=== PATIENT | male | born 1955 | race African-American/Black ===

== ENCOUNTER 2019-10-14 15:08 | Inpatient (IN) | payer OTHER ==
[2019-10-14] MEDS ORDERED: SODIUM CHLORIDE 1,000 ML IV STA (15:32)
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
[2019-10-14] MEDS ORDERED: dilTIAZem HCL 50 MG/10 ML - 10 ML VIAL IVPUSH ONE ×2 (16:06→16:42)
[2019-10-14] MEDS ORDERED: dilTIAZem HCL 125 MG/25 ML - 25 ML VIAL ONE ×2 (16:11→16:46)
[2019-10-14] MEDS ORDERED: dilTIAZem HCL 60 MG TABLET ONE (16:45)
[2019-10-14 16:53] LABS: BASO % 0.1 % (0-2.0); EOS % 1.4 % (0-4.5); HEMATOCRIT 32.1 % (35.4-49); LYMPH % 16.8 % (8-40); MCH 29.3 pg (25.7-33.7); MCHC 34.2 g/dl (32.0-35.9); MEAN CELL VOLUME 85.8 fl (80-96); MONO % 13.7 % (3.8-10.2); PLATELET COUNT 266 K/MM3 (134-434); RBC 3.74 M/mm3 (4.00-5.60); RDW 12.3 % (11.9-15.9)
[2019-10-14 17:26] LABS: ALBUMIN 3.2 g/dl (3.4-5.0); BILIRUBIN,TOTAL 0.9 mg/dL (0.2-1); CALCIUM 9.5 mg/dL (8.5-10.1); TOT PROT 6.7 g/dl (6.4-8.2)
[2019-10-14] MEDS ORDERED: ASPIRIN 81 MG CHEWABLE TABLETS PO ONE (17:42)
[2019-10-14] MEDS ORDERED: ASPIRIN 81 MG CHEWABLE TABLETS ONE (18:04)
[2019-10-14 18:22] LABS: INR 1.14 (0.83-1.09); PROTHROMBIN TIME (PATIENT) 13.5 SEC (9.7-13.0)
[2019-10-14 18:24] LABS: ACTIVATED PTT 35.1 SECONDS (25.2-36.5)
[2019-10-14 19:04] LABS: MAGNESIUM 1.8 mg/dL (1.8-2.4)
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
[2019-10-14] MEDS ORDERED: METOPROLOL TARTRATE 5 MG/5 ML VIAL IVPUSH PRN ×2 (21:47→22:03)
[2019-10-14] MEDS: METHIMAZOLE 10 MG TABLET (FP) PO SCH (22:38)
--- NOTE | 2019-10-14 22:59 | CONSULT ---
Consult Consult Specialty:: Endocrine Referred by:: Lanny MEDINARESIDENT Reason for Consultation:: Hyperthyroidism - History of Present Illness Chief Complaint: lightheaded and dizzy History of Present Illness: 63 Y male no significant pmh,admitted with sudden onset of dizzy feeling and weakness,has 20lb weight loss,denies heat intolerance,tremors or family history of thyroid illness,denies cough fever or chills. - Alcohol/Substance Use Hx Alcohol Use: No - Smoking History Smoking history: Current every day smoker Have you smoked in the past 12 months: Yes Aproximately how many cigarettes per day: 5 Home Medications - Allergies Allergies/Adverse Reactions: Allergies Allergy/AdvReac Type Severity Reaction Status Date / Time No Known Allergies Allergy Verified 10/14/19 15:21 - Home Medications Home Medications: Ambulatory Orders NK [No Known Home Medication] 10/14/19 Review of Systems - Review of Systems Constitutional: reports: Unintentional Wgt. Loss Eyes: reports: No Symptoms HENT: reports: No Symptoms Neck: reports: No Symptoms Cardiovascular: reports: Shortness of Breath Respiratory: reports: No Symptoms Gastrointestinal: reports: No Symptoms Genitourinary: reports: No Symptoms Musculoskeletal: reports: Muscle Cramps Integumentary: reports: No Symptoms Neurological: reports: Dizziness Endocrine: reports: Unexplained Weight Loss Physical Exam Vital Signs: Vital Signs Temperature 98.2 F 10/14/19 22:13 Pulse Rate 80 10/14/19 22:13 Respiratory Rate 18 10/14/19 22:13 Blood Pressure 130/70 10/14/19 22:13 O2 Sat by Pulse Oximetry (%) 95 10/14/19 22:13 Constitutional: Yes: Anxious Eyes: Yes: EOM Intact HENT: Yes: Normocephalic Cardiovascular: Yes: Tachycardia, Pulse Irregular Labs: CBC, BMP 10/14/19 14:06 10/14/19 14:06 Problem List - Problems (1) Atrial flutter with rapid ventricular response Problems reviewed: Yes Code(s): I48.92 - UNSPECIFIED ATRIAL FLUTTER (2) Hyperthyroidism Code(s): E05.90 - THYROTOXICOSIS, UNSP WITHOUT THYROTOXIC CRISIS OR STORM (3) NSTEMI (non-ST elevated myocardial infarction) Code(s): I21.4 - NON-ST ELEVATION (NSTEMI) MYOCARDIAL INFARCTION (4) Elevated blood pressure reading in office without diagnosis of hypertension Code(s): R03.0 - ELEVATED BLOOD-PRESSURE READING, W/O DIAGNOSIS OF HTN (5) Pain, dental Code(s): K08.89 - OTHER SPECIFIED DISORDERS OF TEETH AND SUPPORTING STRUCTURES (6) Wrist pain, left Code(s): M25.532 - PAIN IN LEFT WRIST Assessment/Plan Current Active Problems Atrial flutter with rapid ventricular response (Acute) Hyperthyroidism (Acute) NSTEMI (non-ST elevated myocardial infarction) (Acute) Abnormal Lab Results 10/14/19 10/14/19 10/14/19 14:06 14:06 17:50 RBC 3.74 L Hgb 11.0 L Hct 32.1 L Monocytes % 13.7 H PT with INR 13.50 H INR 1.14 H Alkaline Phosphatase 229 H Troponin I 0.84 H* Albumin 3.2 L TSH 0.01 L Free T4 10/14/19 10/14/19 17:50 21:45 RBC Hgb Hct Monocytes % PT with INR INR Alkaline Phosphatase Troponin I 0.86 H* Albumin TSH Free T4 3.92 H plan: HYPERTHYROIDISM Graves disease likely METHIMAZOLE 10mg tid increase to 20mg tid as tolerated beta blockers as ordered cardiac monitoring anticoagulation
[2019-10-15] MEDS: METHIMAZOLE 10 MG TABLET (FP) PO SCH ×3 (05:28→21:07)
[2019-10-15 05:36] VITALS: BMI 26.2
[2019-10-15 06:50] LABS: BASO % 0.2 % (0-2.0); EOS % 3.4 % (0-4.5); HEMATOCRIT 28.6 % (35.4-49); HEMOGLOBIN 9.7 GM/dL (11.7-16.9); LYMPH % 30.3 % (8-40); MCH 28.8 pg (25.7-33.7); MEAN CELL VOLUME 84.8 fl (80-96); MEAN PLT VOLUME 8.2 fl (7.5-11.1); NEUT % 48.1 % (42.8-82.8); PLATELET COUNT 236 K/MM3 (134-434); RBC 3.38 M/mm3 (4.00-5.60); RDW 12.5 % (11.9-15.9); WHITE BLOOD COUNT 4.3 K/mm3 (4.0-10.0)
[2019-10-15 07:16] LABS: ALBUMIN 2.9 g/dl (3.4-5.0); BILIRUBIN,TOTAL 0.8 mg/dL (0.2-1); BLOOD UREA NITROGEN 20.6 mg/dL (7-18); CREATININE 0.9 mg/dL (0.55-1.3); MAGNESIUM 1.8 mg/dL (1.8-2.4); PHOSPHOROUS 3.2 mg/dL (2.5-4.9); TOT PROT 6.1 g/dl (6.4-8.2)
[2019-10-15] MEDS: ENOXAPARIN NA (PORCINE) 40 MG/0.4 ML DISP.SYRIN SQ SCH (10:16)
[2019-10-15] MEDS: ASPIRIN COATED 81 MG TABLET.EC PO SCH (10:16)
--- NOTE | 2019-10-15 12:17 | ECHO ---
Version: 1 Name: CLAUDETTE KIM Exam: Adult Echocardiogram Study Date: 10/15/2019, 10:54 AM Age: 63 Years MMode/2D Measurements & Calculations IVSd: 1.13 cm LVIDs: 3.2 cm LVIDd: 4.9 cm LVPWd: 1.10 cm LAV (MOD-bp): 74.0 ml ACS: 1.94 cm Ao root diam: 3.0 cm LVOT diam: 1.99 cm LA dimension: 4.2 cm Doppler Measurements & Calculations MV E max jj: 97.2 cm/sec Med E/e': 19.2 MV A max jj: 80.0 cm/sec Med Peak E' Jj: 5.1 cm/sec MV E/A: 1.22 Lat E/e': 13.0 Lat Peak E' Jj: 7.5 cm/sec MR max P.8 mmHg Ao max P.7 mmHg DAWN(I,D): 2.37 cm Ao mean P.1 mmHg LV V1 mean: 69.1 cm/sec Ao V2 max: 147.7 cm/sec LV V1 mean P.30 mmHg PI end-d jj: 107.2 cm/sec TR max jj: 269.5 cm/sec TR max P.3 mmHg Left Ventricle Left ventricular systolic function is normal. Ejection Fraction = 60-65%. Right Ventricle The right ventricle is normal in size and function. Atria The left atrium is mildly dilated. Mitral Valve The mitral valve is normal in structure and function. There is no mitral valve stenosis. There is mi ld mitral regurgitation. Tricuspid Valve The tricuspid valve is normal in structure and function. There is mild tricuspid regurgitation. Righ t ventricular systolic pressure is elevated at 30-40mmHg. Aortic Valve The aortic valve opens well. No hemodynamically significant valvular aortic stenosis. No aortic regu rgitation is present. Pulmonic Valve The pulmonic valve is not well seen, but is grossly normal. There is no pulmonic valvular stenosis. Great Vessels The aortic root is normal size. Pericardium/Pleura There is no pericardial effusion. Summary Statements Left ventricular systolic function is normal. Ejection Fraction = 60-65%. The left atrium is mildly dilated. There is mild mitral regurgitation. There is mild tricuspid regurgitation. Right ventricular systolic pressure is elevated at 30-40mmHg. There is no pericardial effusion. MD Arauz *[place] 10/15/2019, 12:16 PM Ordering Physician: Trevon Jordan Referring Physician: TREVON JORDAN Performed By: Lori Delaney
--- NOTE | 2019-10-15 12:54 | EKG ---
Test Reason : Blood Pressure : / mmHG Vent. Rate : 101 BPM Atrial Rate : 071 BPM P-R Int : 154 ms QRS Dur : 082 ms QT Int : 400 ms P-R-T Axes : 036 031 074 degrees QTc Int : 518 ms SINUS RHYTHM WITH PREMATURE SUPRAVENTRICULAR COMPLEXES AND WITH OCCASIONAL PREMATURE VENTRICULAR COMPLEXES NONSPECIFIC T WAVE ABNORMALITY ABNORMAL ECG WHEN COMPARED WITH ECG OF 14-OCT-2019 15:54, SINUS RHYTHM HAS REPLACED ATRIAL FLUTTER NONSPECIFIC T WAVE ABNORMALITY, WORSE IN LATERAL LEADS Confirmed by CELIO DE LA CRUZ MD ([id number]) on 10/15/2019 12:54:24 PM Referred By: Confirmed By:CELIO DE LA CRUZ MD
--- NOTE | 2019-10-15 12:55 | EKG ---
Test Reason : Blood Pressure : / mmHG Vent. Rate : 144 BPM Atrial Rate : 288 BPM P-R Int : 000 ms QRS Dur : 074 ms QT Int : 312 ms P-R-T Axes : 000 014 068 degrees QTc Int : 483 ms POOR DATA QUALITY, INTERPRETATION MAY BE ADVERSELY AFFECTED ATRIAL FLUTTER WITH VARIABLE A-V BLOCK NONSPECIFIC ST AND T WAVE ABNORMALITY ABNORMAL ECG NO PREVIOUS ECGS AVAILABLE Confirmed by CELIO DE LA CRUZ MD ([id number]) on 10/15/2019 12:55:42 PM Referred By: Confirmed By:CELIO DE LA CRUZ MD
[2019-10-15] MEDS ORDERED: PT OWN MED DRAWER 7, Y5N ONE ×2 (13:26→20:06)
[2019-10-15 13:38] LABS: RETICULOCYTES 1.63 % (0.5-1.5)
--- NOTE | 2019-10-15 14:07 | PN ---
Teaching Attending Note Name of Resident: King De Jesus ATTENDING PHYSICIAN STATEMENT I saw and evaluated the patient. I reviewed the resident's note and discussed the case with the resident. I agree with the resident's findings and plan as documented. SUBJECTIVE: Seen and examined at bedside. Patient reports feeling much better since admission. Heart rate and blood pressure have improved. Pending results of thyroid studies. Echocardiogram unremarkable OBJECTIVE: Last Vital Signs Temp Pulse Resp BP Pulse Ox 98.1 F 90 18 156/87 96 10/15/19 09:00 10/15/19 09:00 10/15/19 09:00 10/15/19 09:00 10/15/19 09:00 PE: per resident note Labs/Imaging: reviewed ASSESSMENT AND PLAN: 63-year-old male with no past medical history presents with dizziness and tachycardia and tremors of the hands. Found to have symptomatic hyperthyroidism. #Symptomatic hypothyroidism Decreased TSH and increased T4 suggest either Graves' disease or hot nodule Follow-up thyroglobulin, thyroid-stimulating immunoglobulin Continue methimazole 10 mg 3 times daily, increase to 20 mg 3 times daily Continue propranolol #Elevated troponin: Downtrending Likely demand ischemia in setting of symptomatic hypothyroidism No need for further work-up #A flutter with rapid ventricular response: Resolved In setting of symptomatic hypothyroidism Continue telemetry Continue propranolol Lopressor IV push PRN elevated heart rate
--- NOTE | 2019-10-15 17:04 | PN ---
Progress Note, Physician Chief Complaint: feeling better than when i came in Much better" - Current Medication List Current Medications: Active Medications Aspirin (Ecotrin -) 81 mg PO DAILY [facility] Last Admin: 10/15/19 10:16 Dose: 81 mg Documented by: Enoxaparin Sodium (Lovenox -) 40 mg SQ DAILY [facility] Last Admin: 10/15/19 10:16 Dose: 40 mg Documented by: Methimazole (Tapazole -) 10 mg PO TID [facility] Last Admin: 10/15/19 13:53 Dose: 10 mg Documented by: Metoprolol Tartrate (Lopressor Injection -) 2.5 mg IVPUSH Q6H PRN PRN Reason: TACHYCARDIA (HR > 120) Propranolol HCl (Inderal -) 20 mg PO TID [facility] Last Admin: 10/15/19 13:53 Dose: 20 mg Documented by: - Objective Vital Signs: Vital Signs Temperature 98.2 F 10/15/19 14:00 Pulse Rate 94 H 10/15/19 14:00 Respiratory Rate 18 10/15/19 09:00 Blood Pressure 138/63 10/15/19 14:00 O2 Sat by Pulse Oximetry (%) 96 10/15/19 09:00 Constitutional: Yes: Calm Eyes: Yes: EOM Intact HENT: Yes: Normocephalic Neck: Yes: Trachea Midline Cardiovascular: Yes: Pulse Irregular Respiratory: Yes: CTA Bilaterally Labs: CBC, BMP 10/15/19 05:55 10/15/19 05:55 INR, PTT INR 1.14 (0.83-1.09) H 10/14/19 17:50 Problem List - Problems (1) Atrial flutter with rapid ventricular response Code(s): I48.92 - UNSPECIFIED ATRIAL FLUTTER (2) Hyperthyroidism Code(s): E05.90 - THYROTOXICOSIS, UNSP WITHOUT THYROTOXIC CRISIS OR STORM (3) NSTEMI (non-ST elevated myocardial infarction) Code(s): I21.4 - NON-ST ELEVATION (NSTEMI) MYOCARDIAL INFARCTION (4) Elevated blood pressure reading in office without diagnosis of hypertension Code(s): R03.0 - ELEVATED BLOOD-PRESSURE READING, W/O DIAGNOSIS OF HTN (5) Pain, dental Code(s): K08.89 - OTHER SPECIFIED DISORDERS OF TEETH AND SUPPORTING STRUCTURES (6) Wrist pain, left Code(s): M25.532 - PAIN IN LEFT WRIST
[2019-10-16 05:20] VITALS: PULSE 84
[2019-10-16] MEDS: METHIMAZOLE 10 MG TABLET (FP) PO SCH (05:21)
[2019-10-16 09:19] VITALS: BP 148/71; TEMP 98
[2019-10-16] MEDS: ASPIRIN COATED 81 MG TABLET.EC PO SCH (09:20)
[2019-10-16] MEDS: ENOXAPARIN NA (PORCINE) 40 MG/0.4 ML DISP.SYRIN SQ SCH (09:21)
--- NOTE | 2019-10-16 11:35 | DS ---
Physical Examination Vital Signs: Vital Signs Temperature 98.0 F 10/16/19 09:00 Pulse Rate 84 10/16/19 09:00 Respiratory Rate 18 10/16/19 09:00 Blood Pressure 148/71 10/16/19 09:00 O2 Sat by Pulse Oximetry (%) 96 10/16/19 09:00 Constitutional: Yes: Well Nourished Eyes: Yes: WNL HENT: Yes: WNL Cardiovascular: Yes: WNL, Regular Rate and Rhythm Respiratory: Yes: WNL, Regular, CTA Bilaterally Gastrointestinal: Yes: Normal Bowel Sounds, Soft Extremities: Yes: WNL Edema: No Labs: CBC, BMP 10/15/19 05:55 10/15/19 05:55 Discharge Summary Problems reviewed: Yes Reason For Visit: HYPERTHYROIDISM NON-ST ELEVATION MYOCARDIAL INFARC Current Active Problems Atrial flutter with rapid ventricular response (Acute) Hyperthyroidism (Acute) NSTEMI (non-ST elevated myocardial infarction) (Acute) Hospital Course: Patient was admitted for dizziness and tachycardia and tremors of the hands as well as a flutter with rapid ventricular response. Patient was found to have symptomatic hyperthyroidism concerning for Graves' disease. Thyroid-stimulating antibody is currently pending. Patient was started on methimazole and propra nolol with improvement in symptoms and normalization of heart rate and blood pressure. Patient is medically stable for discharge. He will follow-up with Dr. Wilson as an outpatient for further management and treatment of his suspected Graves' disease. He will be discharged on methimazole 10 mg 3 times daily, and propranolol 30 mg 3 times daily. Condition: Improved - Instructions Referrals: Jose Wilson MD [Staff Physician] - 2 Weeks (Follow-up with Dr. Wilson (endocrinology) for further evaluation and treatment of your hyperthyroidism) Disposition: HOME - Home Medications Comprehensive Discharge Medication List: Ambulatory Orders Methimazole [Tapazole -] 10 mg PO TID #90 tablet 10/16/19 propRANOLol HCL [Inderal -] 30 mg PO TID 1 Days #90 tablet 10/16/19 This patient is new to me today: No Emergency Visit: Yes ED Registration Date: 10/14/19 Care time: The patient presented to the Emergency Department on the above date and was hospitalized for further evaluation of their emergent condition. Critical Care patient: No - Discharge Referral Referred to [facility] Yes Physician Referral: Fredy Mehta MD (Int Med)
--- NOTE | 2019-10-16 12:32 | PN ---
Physical Exam: SUBJECTIVE: Patient seen and examined OBJECTIVE: Vital Signs Period Temp Pulse Resp BP Sys/Clark Pulse Ox Last 24 Hr 98.0 F-98.8 F 75-100 18-20 138-152/63-91 95-98 GENERAL: The patient is awake, alert, and fully oriented, in no acute distress. HEAD: Normal with no signs of trauma. EYES: PERRL, extraocular movements intact, sclera anicteric, conjunctiva clear. No ptosis. ENT: Ears normal, nares patent, oropharynx clear without exudates, moist mucous membranes. NECK: Trachea midline, full range of motion, supple. LUNGS: Breath sounds equal, clear to auscultation bilaterally, no wheezes, no crackles, no accessory muscle use. HEART: Regular rate and rhythm, S1, S2 without murmur, rub or gallop. ABDOMEN: Soft, nontender, nondistended, normoactive bowel sounds, no guarding, no rebound, no hepatosplenomegaly, no masses. EXTREMITIES: 2+ pulses, warm, well-perfused, no edema. NEUROLOGICAL: Cranial nerves II through XII grossly intact. Normal speech, gait not observed. PSYCH: Normal mood, normal affect. SKIN: Warm, dry, normal turgor, no rashes or lesions noted Laboratory Results - last 24 hr 10/14/19 10/15/19 10/15/19 17:45 05:55 05:55 WBC 4.3 RBC 3.38 L Hgb 9.7 L Hct 28.6 L MCV 84.8 MCH 28.8 MCHC 34.0 RDW 12.5 Plt Count 236 MPV 8.2 Absolute Neuts (auto) 2.1 Neutrophils % 48.1 D Lymphocytes % 30.3 D Monocytes % 18.0 H Eosinophils % 3.4 D Basophils % 0.2 Nucleated RBC % 0 Retic Count 1.63 H Sodium Potassium Chloride Carbon Dioxide Anion Gap BUN Creatinine Est GFR (CKD-EPI)AfAm Est GFR (CKD-EPI)NonAf Random Glucose Calcium Phosphorus Magnesium Iron TIBC Iron Saturation Unsaturated IBC Transferrin Ferritin Total Bilirubin AST ALT Alkaline Phosphatase Troponin I Total Protein Albumin Vitamin B12 Serum Folate Total T3 506.00 H Thyroglobulin (PURVI) Thyroglobulin Antibody COVID-19 (NATHALIE) Not detected 10/15/19 10/15/19 10/15/19 05:55 05:55 05:55 WBC RBC Hgb Hct MCV MCH MCHC RDW Plt Count MPV Absolute Neuts (auto) Neutrophils % Lymphocytes % Monocytes % Eosinophils % Basophils % Nucleated RBC % Retic Count Sodium 140 Potassium 4.0 Chloride 108 H Carbon Dioxide 26 Anion Gap 6 L BUN 20.6 H Creatinine 0.9 Est GFR (CKD-EPI)AfAm 104.24 Est GFR (CKD-EPI)NonAf 89.94 Random Glucose 102 Calcium 9.0 Phosphorus 3.2 Magnesium 1.8 Iron 39 L TIBC 132 L Iron Saturation 29 Unsaturated IBC 93 L Transferrin 123 L Ferritin 684.4 H Total Bilirubin 0.8 AST 21 ALT 45 Alkaline Phosphatase 202 H Troponin I 0.69 H* Total Protein 6.1 L Albumin 2.9 L Vitamin B12 360 Serum Folate 13 Total T3 Thyroglobulin (PURVI) 333.9 H Thyroglobulin Antibody <1.0 COVID-19 (NATHALIE) 10/15/19 12:25 WBC RBC Hgb Hct MCV MCH MCHC RDW Plt Count MPV Absolute Neuts (auto) Neutrophils % Lymphocytes % Monocytes % Eosinophils % Basophils % Nucleated RBC % Retic Count Sodium Potassium Chloride Carbon Dioxide Anion Gap BUN Creatinine Est GFR (CKD-EPI)AfAm Est GFR (CKD-EPI)NonAf Random Glucose Calcium Phosphorus Magnesium Iron TIBC Iron Saturation Unsaturated IBC Transferrin Ferritin Total Bilirubin AST ALT Alkaline Phosphatase Troponin I 0.58 H Total Protein Albumin Vitamin B12 Serum Folate Total T3 Thyroglobulin (PURVI) Thyroglobulin Antibody COVID-19 (NATHALIE) Active Medications Generic Name Dose Route Start Last Admin Trade Name Freq PRN Reason Stop Dose Admin Aspirin 81 mg 10/15/19 10:00 10/16/19 09:20 Ecotrin - PO 81 mg DAILY [facility] Administration Enoxaparin Sodium 40 mg 10/15/19 10:00 10/16/19 09:21 Lovenox - SQ 40 mg DAILY [facility] Administration Methimazole 10 mg 10/14/19 22:00 10/16/19 05:21 Tapazole - PO 10 mg TID [facility] Administration Metoprolol Tartrate 2.5 mg 10/14/19 22:03 Lopressor Injection - IVPUSH Q6H PRN TACHYCARDIA (HR > 120) Propranolol HCl 30 mg 10/16/19 08:04 Inderal - PO TID [facility] ASSESSMENT/PLAN: ATTENDING PHYSICIAN STATEMENT I saw and evaluated the patient. I reviewed the resident's note and discussed the case with the resident. I agree with the resident's findings and plan as documented. SUBJECTIVE: OBJECTIVE: ASSESSMENT AND PLAN:
--- NOTE | 2019-10-16 13:25 | PN ---
Physical Exam: Note for 10/15/19 SUBJECTIVE: No overnight events. Endorses feeling better. Dizziness improved. Tremors resolved. QTC 448 OBJECTIVE: Vital Signs Period Temp Pulse Resp BP Sys/Clark Pulse Ox Last 24 Hr 98.0 F-98.8 F 75-100 18- 138-152/63-91 95-98 GENERAL: AAOX3, NAD HEAD: Normal with no signs of trauma. ENT: Ears normal, nares patent, oropharynx clear without exudates, MMM NECK: No thyromegaly or thyroid nodules appreciated. Normal range of motion, supple without lymphadenopathy,or masses LUNGS: Breath sounds equal, clear to auscultation bilaterally, no wheezes, no crackles, no accessory muscle use. HEART: Regular rate and rhythm, S1, S2 without murmur, rub or gallop. ABDOMEN: Soft, nontender, nondistended, normoactive bowel sounds EXTREMITIES: 2+ pulses, warm, well-perfused, no edema. No pretibial myxedema on LE NEUROLOGICAL: Cranial nerves II through XII grossly intact. Normal speech, gait not observed. DTRs 2+ PSYCH: Normal mood, normal affect. Laboratory Results - last 24 hr 10/14/19 10/14/19 10/15/19 17:45 17:50 05:55 WBC RBC Hgb Hct MCV MCH MCHC RDW Plt Count MPV Absolute Neuts (auto) Neutrophils % Lymphocytes % Monocytes % Eosinophils % Basophils % Nucleated RBC % Retic Count Sodium Potassium Chloride Carbon Dioxide Anion Gap BUN Creatinine Est GFR (CKD-EPI)AfAm Est GFR (CKD-EPI)NonAf Random Glucose Calcium Phosphorus Magnesium Iron TIBC Iron Saturation Unsaturated IBC Transferrin Ferritin Total Bilirubin AST ALT Alkaline Phosphatase Troponin I Total Protein Albumin Vitamin B12 Serum Folate Free T3 21.4 H Total T3 506.00 H Thyroglobulin (PURVI) Thyroglobulin Antibody COVID-19 (NATHALIE) Not detected 10/15/19 10/15/19 10/15/19 05:55 05:55 05:55 WBC 4.3 RBC 3.38 L Hgb 9.7 L Hct 28.6 L MCV 84.8 MCH 28.8 MCHC 34.0 RDW 12.5 Plt Count 236 MPV 8.2 Absolute Neuts (auto) 2.1 Neutrophils % 48.1 D Lymphocytes % 30.3 D Monocytes % 18.0 H Eosinophils % 3.4 D Basophils % 0.2 Nucleated RBC % 0 Retic Count 1.63 H Sodium 140 Potassium 4.0 Chloride 108 H Carbon Dioxide 26 Anion Gap 6 L BUN 20.6 H Creatinine 0.9 Est GFR (CKD-EPI)AfAm 104.24 Est GFR (CKD-EPI)NonAf 89.94 Random Glucose 102 Calcium 9.0 Phosphorus 3.2 Magnesium 1.8 Iron 39 L TIBC 132 L Iron Saturation 29 Unsaturated IBC 93 L Transferrin Ferritin 684.4 H Total Bilirubin 0.8 AST 21 ALT 45 Alkaline Phosphatase 202 H Troponin I 0.69 H* Total Protein 6.1 L Albumin 2.9 L Vitamin B12 360 Serum Folate 13 Free T3 Total T3 Thyroglobulin (PURVI) 333.9 H Thyroglobulin Antibody <1.0 COVID-19 (NATHALIE) 10/15/19 10/15/19 05:55 12:25 WBC RBC Hgb Hct MCV MCH MCHC RDW Plt Count MPV Absolute Neuts (auto) Neutrophils % Lymphocytes % Monocytes % Eosinophils % Basophils % Nucleated RBC % Retic Count Sodium Potassium Chloride Carbon Dioxide Anion Gap BUN Creatinine Est GFR (CKD-EPI)AfAm Est GFR (CKD-EPI)NonAf Random Glucose Calcium Phosphorus Magnesium Iron TIBC Iron Saturation Unsaturated IBC Transferrin 123 L Ferritin Total Bilirubin AST ALT Alkaline Phosphatase Troponin I 0.58 H Total Protein Albumin Vitamin B12 Serum Folate Free T3 Total T3 Thyroglobulin (PURVI) Thyroglobulin Antibody COVID-19 (NATHALIE) CTH: no acute intracranial pathology. Mild degree of diffuse cerebral atrophy w/ sulcal widening & ventricular dilatation. CXR: no acute pathology ASSESSMENT/PLAN: 63 YO M no significant PMH p/w an episode of dizziness, lightheadness, and fine hand tremors that resolved after 20 minutes & a 12 lb unintentional weight loss over the last 3-4 months. #Atrial FLutter w/ RVR -EKG: aflutter w/ variable AV block, RVR at 144 bpm, nonspecific t wave abnormality -s/p diltiazem & propranolol for rate control in ED -c/w propranolol 20 mg PO TID -c/w metoprolol tartrate (lopressor) 2.5 mg IV push PRN, if HR> 120, Hold for Sys BP <90, HR<100 -c/w ASA 81 mg daily -c/w telemonitoring -echo: LV systolic function normal. EF: 60-65%. LA mildly dilated. Mild mitral/tricuspid regurg. RV systolic pressure elevated at 30-40 mmHg. No pericardial effusion #Primary hyperthyroidism -no hx or fm h/o thyroid conditions -TSH 0.01, Free T4 3.92 -Endocrine c/s appreciated. Increase methimazole to 20 mg TID. c/w propranolol 20 mg PO TID. -f/u Thyroglobulin, Thyroid stimulating immunoglobulin. Radioactive iodine uptake scan if negative for Graves disease. -thyroid ultrasound outpt #Troponinemia -Trop downtrended from 0.84>0.86> 0.69 >0.58 -2/2 demand ischemia #Normocytic anemia -H/H 11/32.1>9.7/28.6, MCV 85.8 -LOW iron (39), TIBC (132)// ELEVATED Ferritin (684.4)// -NORMAL B12 360, folate 13 -reticulocyte: 1.63 -Transferrin saturation: 29.5% -likely anemia of chronic disease #DVT ppx Lovenox 40 mg sq daily #FEN No ivf Monitor lytes Regular diet #DISPO Maintain tele Visit type - Emergency Visit Emergency Visit: Yes ED Registration Date: 10/14/19 Care time: The patient presented to the Emergency Department on the above date and was hospitalized for further evaluation of their emergent condition. - New Patient This patient is new to me today: Yes Date on this admission: 10/15/19 - Critical Care Critical Care patient: No ATTENDING PHYSICIAN STATEMENT I saw and evaluated the patient. I reviewed the resident's note and discussed the case with the resident. I agree with the resident's findings and plan as documented. SUBJECTIVE: OBJECTIVE: ASSESSMENT AND PLAN:
== END 2019-10-16 12:32 | disposition home or self-care (01) | DRG 643 ==
LOC: JER 15:08 → JERBED 18:14 → J4W 21:08
PROVIDERS: ADMIT Internal Medicine; ATTEND Internal Medicine
DX: E05.90 Thyrotoxicosis, unspecified without thyrotoxic crisis or storm (principal); I21.4 Non-ST elevation (NSTEMI) myocardial infarction; I48.92 Unspecified atrial flutter; R42 Dizziness and giddiness; R63.4 Abnormal weight loss; Z68.26 Body mass index [BMI] 26.0-26.9, adult; F17.210 Nicotine dependence, cigarettes, uncomplicated; M25.532 Pain in left wrist; K08.89 Other specified disorders of teeth and supporting structures; D64.9 Anemia, unspecified; R00.0 Tachycardia, unspecified
CPT/HCPCS: 36415; 70450-TC; 71045-TC-FY; 80053; 82550; 82607; 82728; 82746; 83540; 83550; 83735; 84100; 84439; 84443; 84445; 84466; 84480; 84481; 84484; 85025; 85045; 85379; 85610; 85730; 93005; 93010; 93306-TC; 99291; U0003

== ENCOUNTER 2024-08-18 21:01 | Inpatient (IN) | payer OTHER ==
[2024-08-18] MEDS ORDERED: ALBUTEROL SO4 2.5/IPRATROPIUM 0.5 INH SOL 3 ML VIAL.NEB. NEB ONE (21:06)
[2024-08-18] MEDS: LORazepam 2 MG/ML SDV VIAL IVPUSH ONE (21:07)
[2024-08-18] MEDS ORDERED: LORazepam 2 MG/ML SDV VIAL ONE (21:07)
[2024-08-18] MEDS ORDERED: RAPID SEQUENCE INTUBATION KIT NR ONE (21:10)
[2024-08-18] MEDS ORDERED: ROCURONIUM BROMIDE 50 MG/5 ML SYRINGE ONE (21:13)
[2024-08-18] MEDS ORDERED: MIDAZOLAM IN 0.9 % SOD.CHLORID 1 MG/1 ML PLAST..BAG ONE (21:36)
[2024-08-18] MEDS ORDERED: dilTIAZem HCL 125 MG/25 ML - 25 ML VIAL ONE ×2 (21:42→23:18)
[2024-08-18] MEDS: dilTIAZem HCL 50 MG/10 ML - 10 ML VIAL IVPUSH ONE ×2 (21:45→23:20)
[2024-08-18] MEDS: MIDAZOLAM IN 0.9 % SOD.CHLORID 100 MG/100 ML PLAST..BAG IVPB SCH (22:07)
[2024-08-18 22:12] LABS: BG HCT 43.0 % (35.4-49); VENOUS BASE EXCESS -18.9 mmol/L (-2-2); VENOUS O2 SATURATION 83.1 % (70-80); VENOUS PCO2 62.4 mmHg (38-52)
[2024-08-18 22:13] LABS: VENOUS PH 6.959 (7.310-7.410)
[2024-08-18 22:15] LABS: RDW 13.9 % (12.2-16.4)
[2024-08-18 22:16] LABS: MCHC 32.8 g/dl (32.3-36.5); MEAN CELL VOLUME 84.7 fl (79.0-92.2); MEAN PLT VOLUME 9.9 fl (9.4-12.4)
[2024-08-18 22:24] LABS: INR 1.18 (0.83-1.09); PROTHROMBIN TIME (PATIENT) 13.0 SEC (9.7-13.0)
[2024-08-18 22:27] LABS: ACTIVATED PTT 35.0 SECONDS (25.2-36.5)
[2024-08-18 22:41] LABS: N-TERMINAL BNP 3545.2 pg/ml (5-125)
[2024-08-18] MEDS ORDERED: PROPOFOL 1,000,000 MCG/100 ML VIAL ONE (22:41)
[2024-08-18 22:44] LABS: CO2 22.0 mmol/L (21-32); GLUCOSE,RANDOM 199.0 mg/dL (74-106)
[2024-08-18 22:47] LABS: CREATININE 1.3 mg/dL (0.55-1.3)
[2024-08-18 22:48] LABS: EPI CELLS >36 /uL (0-25.1); HYALINE CASTS 0 /uL (0-3.1); URINE APPEARANCE CLEAR; URINE BACTERIA 81 /uL (0-1359); URINE BILIRUBIN NEGATIVE (NEGATIVE); URINE COLOR YELLOW; URINE GLUCOSE (UA) NEGATIVE (NEGATIVE); URINE KETONE NEGATIVE (NEGATIVE); URINE LEUK ESTERASE NEGATIVE (NEGATIVE); URINE NITRITE NEGATIVE (NEGATIVE); URINE PROTEIN 3+ (NEGATIVE); URINE RBC 21 /uL (0-23.9); URINE UROBILINOGEN 1.0 mg/dL (0.2-1.0)
[2024-08-18 22:48] LABS: SGOT/AST 67.0 U/L (15-37); SGPT/ALT 64.0 U/L (13-61); TOT PROT 7.9 g/dl (6.4-8.2)
[2024-08-18 22:50] LABS: ALK PHOS 298.0 U/L (45-117)
[2024-08-18] MEDS: PROPOFOL 1,000,000 MCG/100 ML VIAL IVPB SCH (22:50)
[2024-08-18] MEDS: NITROGLYCERIN 25MG/D5W 250ML 25 MG/250 ML ML IVPB SCH (22:52)
[2024-08-18 22:54] LABS: URINE BARBITURATES NEGATIVE (NEGATIVE)
[2024-08-18 22:55] LABS: COCAINE, UR NEGATIVE (NEGATIVE); METHADONE, UR NEGATIVE (NEGATIVE); PHENCYCLIDINE,URINE NEGATIVE (NEGATIVE)
[2024-08-18 22:58] LABS: OPIATES, URI NEGATIVE (NEGATIVE); URINE AMPHETAMINES NEGATIVE (NEGATIVE); URINE BENZODIAZEPINES NEGATIVE (NEGATIVE)
[2024-08-19 00:07] LABS: URINE WBC 82.9 /uL (0-25.8)
[2024-08-19] MEDS: METHIMAZOLE 10 MG TABLET NGT SCH ×2 (00:21→09:04)
[2024-08-19] MEDS ORDERED: FUROSEMIDE 40 MG/4 ML INJECTABLE VIAL ONE (00:21)
[2024-08-19] MEDS: FUROSEMIDE 40 MG/4 ML INJECTABLE VIAL IVPUSH ONE (00:23)
[2024-08-19] MEDS: MUPIROCIN 2% TOPICAL OINTMENT FOR DECOLONIZATION NS SCH (00:24)
[2024-08-19 01:20] LABS: ARTERIAL BLD GAS O2 SATURATION 90.2 % (95-98); ARTERIAL BLOOD GAS BASE EXCESS -7.8 mmol/L (-2-2); ARTERIAL BLOOD GAS PCO2 53.30 mmHg (35-45); ARTERIAL BLOOD GAS PO2 70.2 mmHg (80-100); BG HCT 44.0 % (35.4-49); O2 CONTENT 1.87 % vol
[2024-08-19] MEDS: CEFTRIAXONE 1 GM in DEXTROSE 5%-WATER - 50 ML IVPB SCH (01:37)
[2024-08-19] MEDS: METHIMAZOLE 10 MG TABLET PO ONE (01:37)
[2024-08-19] MEDS: POTASSIUM CHLORIDE ORAL LIQUID 20 MEQ/15 ML PO ONE ×2 (01:40→01:45)
[2024-08-19] MEDS: HYDROCORTISONE SOD SUCCINATE 100 MG/2 ML VIAL IVPB ONE (02:24)
[2024-08-19] MEDS: AZITHROMYCIN IVPB 500 MG/250 ML BAG IVPB ONE (02:28)
[2024-08-19] MEDS ORDERED: NOREPINEPHRINE BITARTRATE 4 MG/4 ML ML IV ONE ×2 (03:16→10:00)
[2024-08-19 03:39] LABS: ARTERIAL BLD GAS O2 SATURATION 96.4 % (95-98); ARTERIAL BLOOD GAS BASE EXCESS -11.5 mmol/L (-2-2); ARTERIAL BLOOD GAS PCO2 54.10 mmHg (35-45); ARTERIAL BLOOD GAS PO2 110.3 mmHg (80-100); BG HCT 41.0 % (35.4-49); O2 CONTENT 1.88 % vol
[2024-08-19] MEDS: NOREPINEPHRINE BITARTRATE 4,000 MCG in DEXTROSE 5%-WATER - 496 ML IV SCH (04:00)
[2024-08-19] MEDS: FENTANYL NS IVPB 500 MCG/100 ML BAG IVPB SCH (05:38)
[2024-08-19 07:04] LABS: MCHC 33.3 g/dl (32.3-36.5); MEAN CELL VOLUME 83.4 fl (79.0-92.2); MEAN PLT VOLUME 10.3 fl (9.4-12.4); RDW 14.2 % (12.2-16.4)
[2024-08-19 07:12] LABS: INR 1.26 (0.83-1.09); PROTHROMBIN TIME (PATIENT) 13.9 SEC (9.7-13.0)
[2024-08-19 07:16] LABS: ACTIVATED PTT 31.9 SECONDS (25.2-36.5)
[2024-08-19 07:20] LABS: ARTERIAL BLD GAS O2 SATURATION 96.4 % (95-98); ARTERIAL BLOOD GAS BASE EXCESS -9.3 mmol/L (-2-2); ARTERIAL BLOOD GAS PCO2 63.40 mmHg (35-45); ARTERIAL BLOOD GAS PO2 110.3 mmHg (80-100); BG HCT 49.0 % (35.4-49)
[2024-08-19 07:28] LABS: CO2 23 mmol/L (21-32); GLUCOSE,RANDOM 90 mg/dL (74-106)
[2024-08-19 07:30] LABS: CREATININE 1.9 mg/dL (0.55-1.3); SGOT/AST 43 U/L (15-37); SGPT/ALT 55 U/L (13-61); TOT PROT 6.7 g/dl (6.4-8.2)
[2024-08-19 07:34] LABS: ALK PHOS 244 U/L (45-117)
[2024-08-19] MEDS: MAGNESIUM 2GM/50ML STERILE WATER IVPB IVPB ONE (09:04)
[2024-08-19] MEDS: HYDROCORTISONE SOD SUCCINATE 100 MG/2 ML VIAL IVPUSH SCH (09:04)
[2024-08-19 09:18] LABS: CO2 23 mmol/L (21-32); GLUCOSE,RANDOM 99 mg/dL (74-106)
[2024-08-19 09:20] LABS: CREATININE 2.2 mg/dL (0.55-1.3)
[2024-08-19 09:53] LABS: LACTIC ACID 3.8 mmol/L (0.4-2.0)
[2024-08-19] MEDS ORDERED: PNEUMOC 20-VAL CONJ-DIP CRM/PF 0.5 ML SYRINGE IM ONE (10:00)
[2024-08-19] MEDS: SODIUM ZIRCONIUM CYCLOSILICATE (LOKELMA) 5 GM PACKET PO ONE (10:21)
[2024-08-19] MEDS: CALCIUM GLUCONATE 10% - 1,000 MG/10 ML VIAL IVPB ONE (10:40)
[2024-08-19] MEDS: SODIUM CHLORIDE 0.45% 1,000 ML IV SCH (10:41)
[2024-08-19 11:28] LABS: ARTERIAL BLD GAS O2 SATURATION 99.3 % (95-98); ARTERIAL BLOOD GAS BASE EXCESS -8.9 mmol/L (-2-2); ARTERIAL BLOOD GAS PCO2 41.00 mmHg (35-45); ARTERIAL BLOOD GAS PO2 211.9 mmHg (80-100); BG HCT 44.0 % (35.4-49); O2 CONTENT 2.09 % vol
[2024-08-19 11:29] LABS: VENT MODE A/C; VENT RATE 16
[2024-08-19] MEDS ORDERED: DEXTROSE 50%-WATER 25 GM/50 ML DISP.SYRIN ONE (11:46)
[2024-08-19] MEDS: DEXTROSE 50%-WATER 25 GM/50 ML DISP.SYRIN IVPUSH ONE (11:55)
[2024-08-19] MEDS: INSULIN REGULAR HUMAN 100 UNITS/ML *VIAL IVPUSH ONE (11:55)
[2024-08-19] MEDS ORDERED: PIPERACILLIN/TAZOB 4.5 GM 4.5 GM in DEXTROSE 5%-WATER 100 ML IVPB SCH (12:15)
[2024-08-19] MEDS ORDERED: INSULIN REGULAR HUMAN 100 UNITS/ML *VIAL ONE (12:49)
[2024-08-19] MEDS: PIPERACILLIN/TAZOB 4.5 GM 4.5 GM/100 ML BAG IVPB SCH (13:28)
[2024-08-19] MEDS: REMDESIVIR 200 MG in SODIUM CHLORIDE 250 ML IVPB ONE (14:00)
[2024-08-19 15:38] LABS: CO2 20.0 mmol/L (21-32); GLUCOSE,RANDOM 159.0 mg/dL (74-106)
[2024-08-19 15:41] LABS: CREATININE 2.5 mg/dL (0.55-1.3)
[2024-08-19] MEDS: PIPERACILLIN/TAZOB 2.25 GM 2.25 GM in DEXTROSE 5%-WATER - 50 ML IVPB SCH (16:59)
[2024-08-19] MEDS ORDERED: HEPARIN NA (PORCINE) 5,000 UNITS/ML 1ML VIAL IVPUSH PRN (17:50)
[2024-08-19] MEDS: NOREPINEPHRINE 0.9 % NACL 8 MG/250 ML BAG IVPB SCH (18:24)
[2024-08-19] MEDS: ASPIRIN 81 MG CHEWABLE TABLETS PO SCH (18:24)
[2024-08-19] MEDS: HEPARIN NA (PORCINE) 5,000 UNITS/ML 1ML VIAL IVPUSH ONE (18:24)
[2024-08-19] MEDS: HEPARIN INFUSION - 25,000 UNITS/500 ML INFUS.BAG IVPB SCH (18:25)
[2024-08-19] MEDS ORDERED: INSULIN ASPART SLIDING SCALE (NOVOLOG) 1 VIAL SQ ONE (19:18)
[2024-08-19] MEDS: CHLORHEXIDINE GLUCONATE 4% CLEANSER FOR DECOLONIZATION TP SCH (21:06)
[2024-08-19] MEDS: ATORVASTATIN CA 80 MG TABLET (FP) PO SCH (21:08)
[2024-08-20 07:13] LABS: MCHC 33.6 g/dl (32.3-36.5); MEAN CELL VOLUME 84.0 fl (79.0-92.2); MEAN PLT VOLUME 11.0 fl (9.4-12.4); RDW 14.5 % (12.2-16.4)
[2024-08-20 07:29] LABS: LACTIC ACID 2.3 mmol/L (0.4-2.0)
[2024-08-20 07:32] LABS: LDL CHOLESTEROL (ONLY SJRH) 29 mg/dL (5-100)
[2024-08-20 07:40] LABS: CO2 20.0 mmol/L (21-32); GLUCOSE,RANDOM 156.0 mg/dL (74-106)
[2024-08-20 07:43] LABS: CREATININE 2.8 mg/dL (0.55-1.3); SGOT/AST 57.0 U/L (15-37); SGPT/ALT 48.0 U/L (13-61)
[2024-08-20 07:51] LABS: ALK PHOS 136.0 U/L (45-117); TOT PROT 5.7 g/dl (6.4-8.2)
[2024-08-20] MEDS: SODIUM ZIRCONIUM CYCLOSILICATE (LOKELMA) 5 GM PACKET PO SCH (10:50)
[2024-08-20 11:04] LABS: ARTERIAL BLD GAS O2 SATURATION 95.0 % (95-98); ARTERIAL BLOOD GAS BASE EXCESS -6.7 mmol/L (-2-2); ARTERIAL BLOOD GAS PCO2 39.10 mmHg (35-45); ARTERIAL BLOOD GAS PO2 80.9 mmHg (80-100); BG HCT 37.0 % (35.4-49); O2 CONTENT 1.67 % vol
[2024-08-20 11:08] LABS: INR 1.64 (0.83-1.09); PROTHROMBIN TIME (PATIENT) 18.0 SEC (9.7-13.0)
[2024-08-20] MEDS: REMDESIVIR 100 MG in SODIUM CHLORIDE 250 ML IVPB SCH (13:50)
[2024-08-20 14:01] LABS: LDH 308.0 U/L (87-246)
[2024-08-20 20:05] LABS: HIV INTERPRETATION NEGATIVE (NEGATIVE)
[2024-08-21 06:56] LABS: MCHC 32.4 g/dl (32.3-36.5); MEAN CELL VOLUME 84.5 fl (79.0-92.2); MEAN PLT VOLUME 11.1 fl (9.4-12.4); RDW 14.5 % (12.2-16.4)
[2024-08-21 07:21] LABS: CO2 23.0 mmol/L (21-32); GLUCOSE,RANDOM 155.0 mg/dL (74-106)
[2024-08-21 07:24] LABS: CREATININE 2.1 mg/dL (0.55-1.3)
[2024-08-21] MEDS: HEPARIN NA (PORCINE) 5,000 UNITS/ML 1ML VIAL IVPUSH PRN (08:39)
[2024-08-21] MEDS: METOCLOPRAMIDE HCL INJECTION 10 MG/2 ML VIAL IVPUSH SCH (08:56)
[2024-08-21] MEDS: VANCOMYCIN/WATER FOR INJ (PEG) 1 GM/200 ML BAG IVPB ONE (13:26)
[2024-08-21] MEDS: dilTIAZem HCL 50 MG/10 ML - 10 ML VIAL IVPUSH PRN (13:39)
[2024-08-21] MEDS: ACETAMINOPHEN 1000 MG/100 ML BAG IVPB PRN (16:01)
[2024-08-21] MEDS: METOPROLOL TARTRATE 5 MG/5 ML VIAL IVPUSH PRN (16:17)
[2024-08-21] MEDS: APIXABAN 5 MG TABLET PO SCH (16:28)
[2024-08-22] MEDS: PIPERACILLIN/TAZOB 3.375 GM 3.375 GM in DEXTROSE 5%-WATER - 50 ML IVPB SCH (01:28)
[2024-08-22 06:42] LABS: ABSOLUTE IMMATURE GRANULOCYTES 0.05 x10^3/uL (0.0-0.031); BASOPHILS # 0.00 x10^3/uL (0.01-0.08); EOSINOPHIL % 0.0 % (0.8-7.0); EOSINOPHILS # 0.00 x10^3/uL (0.04-0.54); MCHC 32.0 g/dl (32.3-36.5); MEAN CELL VOLUME 84.5 fl (79.0-92.2); MEAN PLT VOLUME 10.8 fl (9.4-12.4); MONOCYTE # 0.38 x10^3/uL (0.30-0.82); MONOCYTE % 4.9 % (5.3-12.2); RDW 14.1 % (12.2-16.4)
[2024-08-22 07:08] LABS: CO2 27.0 mmol/L (21-32); GLUCOSE,RANDOM 125.0 mg/dL (74-106)
[2024-08-22 07:11] LABS: CREATININE 1.8 mg/dL (0.55-1.3); SGPT/ALT 41.0 U/L (13-61)
[2024-08-22 07:12] LABS: SGOT/AST 38.0 U/L (15-37)
[2024-08-22 07:13] LABS: TOT PROT 5.5 g/dl (6.4-8.2)
[2024-08-22 07:14] LABS: ALK PHOS 117.0 U/L (45-117)
[2024-08-22 12:26] LABS: ARTERIAL BLD GAS O2 SATURATION 96.7 % (95-98); ARTERIAL BLOOD GAS BASE EXCESS -3.3 mmol/L (-2-2); ARTERIAL BLOOD GAS PCO2 42.60 mmHg (35-45); ARTERIAL BLOOD GAS PO2 93.2 mmHg (80-100); BG HCT 29.0 % (35.4-49); O2 CONTENT 1.33 % vol
[2024-08-22 12:27] LABS: VENT RATE 16
[2024-08-22] MEDS: ALBUMIN HUMAN 25% 100 ML VIAL IV SCH (23:34)
[2024-08-23 07:19] LABS: MCHC 31.9 g/dl (32.3-36.5); MEAN CELL VOLUME 85.3 fl (79.0-92.2); MEAN PLT VOLUME 11.3 fl (9.4-12.4); RDW 14.1 % (12.2-16.4)
[2024-08-23 07:33] LABS: CO2 26.0 mmol/L (21-32); GLUCOSE,RANDOM 153.0 mg/dL (74-106)
[2024-08-23 07:36] LABS: CREATININE 1.7 mg/dL (0.55-1.3); SGOT/AST 27.0 U/L (15-37); SGPT/ALT 36.0 U/L (13-61)
[2024-08-23 07:37] LABS: TOT PROT 5.7 g/dl (6.4-8.2)
[2024-08-23 07:38] LABS: ALK PHOS 106.0 U/L (45-117)
[2024-08-23] MEDS: amLODIPine BESYLATE 5 MG TABLET (FP) PO ONE (11:14)
[2024-08-23] MEDS ORDERED: FUROSEMIDE 40 MG/4 ML INJECTABLE VIAL ONE (11:15)
[2024-08-23] MEDS: LABETALOL HCL 20 MG/4 ML VIAL IVPUSH ONE ×2 (11:15→11:45)
[2024-08-23] MEDS: FUROSEMIDE 40 MG/4 ML INJECTABLE VIAL IVPUSH ONE (11:16)
[2024-08-23] MEDS: ACETAMINOPHEN 1000 MG/100 ML BAG IVPB ONE (13:05)
[2024-08-23 14:22] VITALS: BMI 30.1
[2024-08-23] MEDS: LABETALOL HCL 20 MG/4 ML VIAL IVPUSH PRN (19:01)
[2024-08-23] MEDS: DEXMEDETOMIDINE PREMIX 400 MCG/100 ML BAG IVPB SCH (20:54)
[2024-08-23] MEDS: FENTANYL NS IVPB 500 MCG/100 ML BAG IVPB SCH (20:55)
[2024-08-23] MEDS: HYDROCORTISONE SOD SUCCINATE 100 MG/2 ML VIAL IVPUSH SCH (21:16)
[2024-08-23 22:08] LABS: ANTIGLOMERULAR BASEMENT MEN.AB <0.2 units (0.0-0.9)
[2024-08-23] MEDS: NICARDIPINE 25 MG in DEXTROSE 5%-WATER - 240 ML IVPB SCH (23:44)
[2024-08-24] MEDS: ACETAMINOPHEN 1000 MG/100 ML BAG IVPB PRN (04:20)
[2024-08-24 10:00] LABS: ABSOLUTE IMMATURE GRANULOCYTES 0.04 x10^3/uL (0.0-0.031); BASOPHILS # 0.01 x10^3/uL (0.01-0.08); EOSINOPHIL % 0.1 % (0.8-7.0); EOSINOPHILS # 0.01 x10^3/uL (0.04-0.54); MCHC 32.4 g/dl (32.3-36.5); MEAN CELL VOLUME 84.1 fl (79.0-92.2); MEAN PLT VOLUME 11.3 fl (9.4-12.4); MONOCYTE # 0.95 x10^3/uL (0.30-0.82); MONOCYTE % 11.3 % (5.3-12.2); RDW 13.7 % (12.2-16.4)
[2024-08-24] MEDS: amLODIPine BESYLATE 10 MG TABLET (FP) PO SCH (10:09)
[2024-08-24 10:18] LABS: CO2 26.0 mmol/L (21-32)
[2024-08-24 10:19] LABS: GLUCOSE,RANDOM 157.0 mg/dL (74-106)
[2024-08-24 10:21] LABS: SGOT/AST 25.0 U/L (15-37); SGPT/ALT 36.0 U/L (13-61)
[2024-08-24 10:22] LABS: CREATININE 1.5 mg/dL (0.55-1.3)
[2024-08-24 10:23] LABS: TOT PROT 5.6 g/dl (6.4-8.2)
[2024-08-24 10:24] LABS: ALK PHOS 110.0 U/L (45-117)
[2024-08-24] MEDS: hydrALAZINE HCL 25 MG TABLET (FP) NGT SCH (13:37)
[2024-08-24] MEDS: ALBUTEROL SO4 0.5 % INH SOLN 2.5 MG/0.5 ML VIAL.NEB. NEB SCH (21:00)
[2024-08-24] MEDS: SODIUM CHLORIDE FOR INHALATION 3 ML VIAL.NEB IH SCH (21:00)
[2024-08-25] MEDS: METOCLOPRAMIDE HCL INJECTION 10 MG/2 ML VIAL IVPUSH PRN (01:15)
[2024-08-25 06:47] LABS: ABSOLUTE IMMATURE GRANULOCYTES 0.05 x10^3/uL (0.0-0.031); BASOPHILS # 0.01 x10^3/uL (0.01-0.08); EOSINOPHIL % 0.7 % (0.8-7.0); EOSINOPHILS # 0.06 x10^3/uL (0.04-0.54); MCHC 31.9 g/dl (32.3-36.5); MEAN CELL VOLUME 85.3 fl (79.0-92.2); MEAN PLT VOLUME 11.3 fl (9.4-12.4); MONOCYTE # 1.07 x10^3/uL (0.30-0.82); MONOCYTE % 11.7 % (5.3-12.2); RDW 13.8 % (12.2-16.4)
[2024-08-25 07:23] LABS: ALK PHOS 132.0 U/L (45-117); CO2 26.0 mmol/L (21-32); CREATININE 1.3 mg/dL (0.55-1.3); GLUCOSE,RANDOM 128.0 mg/dL (74-106); SGOT/AST 35.0 U/L (15-37); SGPT/ALT 46.0 U/L (13-61); TOT PROT 6.0 g/dl (6.4-8.2)
[2024-08-25] MEDS: DEXTROSE 5%-WATER - 1,000 ML IV SCH ×2 (08:15→17:14)
[2024-08-25] MEDS ORDERED: ALBUTEROL SO4 0.5 % INH SOLN 2.5 MG/0.5 ML VIAL.NEB. NEB PRN (08:42)
[2024-08-25] MEDS: methylPREDNISolone NA SUCC 40 MG/1 ML VIAL IVPUSH SCH (11:18)
[2024-08-25] MEDS: FUROSEMIDE 40 MG/4 ML INJECTABLE VIAL IVPUSH ONE (11:18)
[2024-08-25] MEDS: ALBUTEROL SO4 2.5/IPRATROPIUM 0.5 INH SOL 3 ML VIAL.NEB. NEB SCH (11:50)
[2024-08-25] MEDS ORDERED: ALBUTEROL SO4 2.5/IPRATROPIUM 0.5 INH SOL 3 ML VIAL.NEB. NEB SCH (12:00)
[2024-08-25] MEDS: POTASSIUM CHLORIDE ORAL LIQUID 20 MEQ/15 ML PO ONE (14:31)
[2024-08-25 15:50] LABS: CO2 26.0 mmol/L (21-32); GLUCOSE,RANDOM 223.0 mg/dL (74-106)
[2024-08-25 15:53] LABS: CREATININE 1.2 mg/dL (0.55-1.3)
[2024-08-25] MEDS: INSULIN ASPART SLIDING SCALE (NOVOLOG) 1 VIAL SQ SCH (18:53)
[2024-08-25] MEDS: hydrALAZINE HCL 50 MG TABLET (FP) NGT SCH (21:05)
[2024-08-26 06:16] LABS: CO2 27.0 mmol/L (21-32)
[2024-08-26 06:17] LABS: GLUCOSE,RANDOM 199.0 mg/dL (74-106)
[2024-08-26 06:19] LABS: ABSOLUTE IMMATURE GRANULOCYTES 0.04 x10^3/uL (0.0-0.031); BASOPHILS # 0.01 x10^3/uL (0.01-0.08); EOSINOPHIL % 0.0 % (0.8-7.0); EOSINOPHILS # 0.00 x10^3/uL (0.04-0.54); MCHC 32.7 g/dl (32.3-36.5); MEAN CELL VOLUME 84.9 fl (79.0-92.2); MEAN PLT VOLUME 11.5 fl (9.4-12.4); MONOCYTE # 1.02 x10^3/uL (0.30-0.82); MONOCYTE % 13.7 % (5.3-12.2); RDW 13.6 % (12.2-16.4)
[2024-08-26 06:19] LABS: SGOT/AST 24.0 U/L (15-37); SGPT/ALT 41.0 U/L (13-61)
[2024-08-26 06:20] LABS: CREATININE 1.0 mg/dL (0.55-1.3)
[2024-08-26 06:21] LABS: TOT PROT 5.9 g/dl (6.4-8.2)
[2024-08-26 06:22] LABS: ALK PHOS 118.0 U/L (45-117)
[2024-08-26] MEDS ORDERED: INSULIN GLARGINE (LANTUS) 100 UNITS/ML UNITS SQ ONE (06:31)
[2024-08-26] MEDS ORDERED: INSULIN ASPART SLIDING SCALE (NOVOLOG) 1 VIAL SQ ONE (06:31)
[2024-08-26] MEDS: METHIMAZOLE 10 MG TABLET NGT SCH (10:45)
[2024-08-26] MEDS: FUROSEMIDE 40 MG/4 ML INJECTABLE VIAL IVPUSH ONE (11:01)
[2024-08-26 14:06] LABS: C-ANCA <1:20 titer (Neg:<1:20)
[2024-08-26] MEDS: ASPIRIN 325 MG TABLET PO ONE (17:53)
[2024-08-27 06:33] LABS: ABSOLUTE IMMATURE GRANULOCYTES 0.03 x10^3/uL (0.0-0.031); BASOPHILS # 0.01 x10^3/uL (0.01-0.08); EOSINOPHIL % 0.0 % (0.8-7.0); EOSINOPHILS # 0.00 x10^3/uL (0.04-0.54); MCHC 32.5 g/dl (32.3-36.5); MEAN CELL VOLUME 83.9 fl (79.0-92.2); MEAN PLT VOLUME 11.1 fl (9.4-12.4); MONOCYTE # 0.79 x10^3/uL (0.30-0.82); MONOCYTE % 12.1 % (5.3-12.2); RDW 13.4 % (12.2-16.4)
[2024-08-27 06:47] LABS: CO2 28.0 mmol/L (21-32); GLUCOSE,RANDOM 169.0 mg/dL (74-106)
[2024-08-27 06:50] LABS: CREATININE 1.2 mg/dL (0.55-1.3); SGOT/AST 69.0 U/L (15-37); SGPT/ALT 91.0 U/L (13-61)
[2024-08-27 06:52] LABS: TOT PROT 6.0 g/dl (6.4-8.2)
[2024-08-27 06:53] LABS: ALK PHOS 120.0 U/L (45-117)
[2024-08-27] MEDS: CLOPIDOGREL BISULFATE 75 MG TABLET (FP) GT SCH (09:42)
[2024-08-27] MEDS ORDERED: FUROSEMIDE 40 MG/4 ML INJECTABLE VIAL ONE (11:22)
[2024-08-27] MEDS: FUROSEMIDE 40 MG/4 ML INJECTABLE VIAL IVPUSH ONE (11:23)
[2024-08-27] MEDS ORDERED: hydrALAZINE HCL 50 MG TABLET (FP) PO SCH (14:18)
[2024-08-27] MEDS: METHIMAZOLE 10 MG TABLET GT SCH (17:54)
[2024-08-27] MEDS ORDERED: METHIMAZOLE 10 MG TABLET PO SCH (18:00)
[2024-08-27] MEDS: APIXABAN 5 MG TABLET GT SCH (21:01)
[2024-08-27] MEDS: hydrALAZINE HCL 50 MG TABLET (FP) GT SCH (21:02)
[2024-08-28] MEDS: SCOPOLAMINE HYDROBROMIDE 1 PATCH PATCH.TD72 TD ONE (00:42)
[2024-08-28 06:14] LABS: ABSOLUTE IMMATURE GRANULOCYTES 0.05 x10^3/uL (0.0-0.031); BASOPHILS # 0.01 x10^3/uL (0.01-0.08); EOSINOPHIL % 0.1 % (0.8-7.0); EOSINOPHILS # 0.01 x10^3/uL (0.04-0.54); MCHC 32.7 g/dl (32.3-36.5); MEAN CELL VOLUME 84.4 fl (79.0-92.2); MEAN PLT VOLUME 10.1 fl (9.4-12.4); MONOCYTE # 1.47 x10^3/uL (0.30-0.82); MONOCYTE % 13.4 % (5.3-12.2); RDW 13.6 % (12.2-16.4)
[2024-08-28 06:34] LABS: CO2 28.0 mmol/L (21-32)
[2024-08-28 06:35] LABS: GLUCOSE,RANDOM 103.0 mg/dL (74-106)
[2024-08-28 06:37] LABS: SGOT/AST 63.0 U/L (15-37); SGPT/ALT 116.0 U/L (13-61)
[2024-08-28 06:38] LABS: CREATININE 1.0 mg/dL (0.55-1.3)
[2024-08-28 06:39] LABS: TOT PROT 6.2 g/dl (6.4-8.2)
[2024-08-28 06:40] LABS: ALK PHOS 130.0 U/L (45-117)
[2024-08-28] MEDS: amLODIPine BESYLATE 10 MG TABLET (FP) GT SCH (10:00)
[2024-08-28] MEDS: CLOPIDOGREL BISULFATE 75 MG TABLET (FP) PO SCH (10:00)
[2024-08-28] MEDS: ASPIRIN 81 MG CHEWABLE TABLETS GT SCH (10:00)
[2024-08-28] MEDS: DEXTROSE 5%-WATER - 1,000 ML IV SCH (10:00)
[2024-08-29 06:52] LABS: MCHC 32.8 g/dl (32.3-36.5); MEAN CELL VOLUME 83.3 fl (79.0-92.2); MEAN PLT VOLUME 10.7 fl (9.4-12.4); RDW 13.2 % (12.2-16.4)
[2024-08-29 07:16] LABS: CO2 25.0 mmol/L (21-32); GLUCOSE,RANDOM 118.0 mg/dL (74-106)
[2024-08-29 07:19] LABS: CREATININE 0.9 mg/dL (0.55-1.3); SGOT/AST 46.0 U/L (15-37); SGPT/ALT 93.0 U/L (13-61)
[2024-08-29 07:21] LABS: TOT PROT 6.5 g/dl (6.4-8.2)
[2024-08-29 07:22] LABS: ALK PHOS 133.0 U/L (45-117)
[2024-08-29] MEDS: NAPH,MB-DB/K PH,MBDB POWDER PACKET PO ONE (10:00)
[2024-08-29] MEDS: METOCLOPRAMIDE HCL INJECTION 10 MG/2 ML VIAL IVPUSH PRN (10:12)
[2024-08-29] MEDS: hydrALAZINE HCL 50 MG TABLET (FP) GT SCH (10:16)
[2024-08-29] MEDS: DEXTROSE 5%-WATER - 1,000 ML IV SCH (10:17)
[2024-08-30 06:32] LABS: MCHC 32.8 g/dl (32.3-36.5); MEAN CELL VOLUME 82.7 fl (79.0-92.2); MEAN PLT VOLUME 10.6 fl (9.4-12.4); RDW 13.0 % (12.2-16.4)
[2024-08-30 07:05] LABS: CO2 25.0 mmol/L (21-32); GLUCOSE,RANDOM 132.0 mg/dL (74-106)
[2024-08-30 07:06] LABS: SGOT/AST 50.0 U/L (15-37); SGPT/ALT 93.0 U/L (13-61)
[2024-08-30 07:08] LABS: ALK PHOS 131.0 U/L (45-117); CREATININE 0.9 mg/dL (0.55-1.3); TOT PROT 6.1 g/dl (6.4-8.2)
[2024-08-30] MEDS: NAPH,MB-DB/K PH,MBDB POWDER PACKET PO ONE (12:59)
[2024-08-31 07:36] LABS: MCHC 33.0 g/dl (32.3-36.5); MEAN CELL VOLUME 82.7 fl (79.0-92.2); MEAN PLT VOLUME 10.8 fl (9.4-12.4); RDW 13.1 % (12.2-16.4)
[2024-08-31 08:15] LABS: CO2 24.0 mmol/L (21-32); GLUCOSE,RANDOM 158.0 mg/dL (74-106)
[2024-08-31 08:17] LABS: CREATININE 0.9 mg/dL (0.55-1.3); SGOT/AST 69.0 U/L (15-37); SGPT/ALT 116.0 U/L (13-61)
[2024-08-31 08:19] LABS: TOT PROT 6.0 g/dl (6.4-8.2)
[2024-08-31 08:20] LABS: ALK PHOS 130.0 U/L (45-117)
[2024-08-31] MEDS ORDERED: METOCLOPRAMIDE HCL INJECTION 10 MG/2 ML VIAL IVPUSH PRN (12:38)
[2024-08-31] MEDS ORDERED: ACETAMINOPHEN 1000 MG/100 ML BAG IVPB PRN (12:38)
[2024-08-31] MEDS: METHIMAZOLE 10 MG TABLET PO SCH (12:53)
[2024-08-31] MEDS: DEXTROSE 5%-WATER - 1,000 ML IV SCH (13:22)
[2024-08-31] MEDS: INSULIN ASPART SLIDING SCALE (NOVOLOG) 1 VIAL SQ SCH (16:54)
[2024-08-31] MEDS ORDERED: PIPERACILLIN/TAZOB 3.375 GM 3.375 GM in DEXTROSE 5%-WATER - 50 ML IVPB SCH (18:00)
[2024-08-31] MEDS: CEFEPIME 1 GM in DEXTROSE 5%-WATER 100 ML IVPB SCH (18:11)
[2024-08-31] MEDS: METHIMAZOLE 10 MG TABLET GT SCH (18:11)
[2024-08-31] MEDS: ATORVASTATIN CA 80 MG TABLET (FP) GT SCH (21:05)
[2024-08-31] MEDS: APIXABAN 5 MG TABLET GT SCH (21:05)
[2024-08-31] MEDS ORDERED: CHLORHEXIDINE GLUCONATE 4% CLEANSER FOR DECOLONIZATION TP SCH (22:00)
[2024-09-01 07:50] LABS: MCHC 32.7 g/dl (32.3-36.5); MEAN CELL VOLUME 82.6 fl (79.0-92.2); MEAN PLT VOLUME 10.8 fl (9.4-12.4); RDW 13.0 % (12.2-16.4)
[2024-09-01 08:41] LABS: ALK PHOS 145.0 U/L (45-117)
[2024-09-01 09:02] LABS: CO2 24.0 mmol/L (21-32); CREATININE 0.8 mg/dL (0.55-1.3); GLUCOSE,RANDOM 106.0 mg/dL (74-106); SGOT/AST 60.0 U/L (15-37); SGPT/ALT 115.0 U/L (13-61)
[2024-09-01 09:04] LABS: TOT PROT 5.8 g/dl (6.4-8.2)
[2024-09-01] MEDS ORDERED: ASPIRIN 81 MG CHEWABLE TABLETS GT SCH (10:00)
[2024-09-01] MEDS: amLODIPine BESYLATE 10 MG TABLET (FP) GT SCH (10:01)
[2024-09-01] MEDS: CLOPIDOGREL BISULFATE 75 MG TABLET (FP) GT SCH (10:01)
[2024-09-02 08:13] LABS: CO2 26.0 mmol/L (21-32); GLUCOSE,RANDOM 116.0 mg/dL (74-106)
[2024-09-02 08:15] LABS: MCHC 32.7 g/dl (32.3-36.5); MEAN CELL VOLUME 83.4 fl (79.0-92.2); MEAN PLT VOLUME 10.7 fl (9.4-12.4); RDW 13.2 % (12.2-16.4); SGPT/ALT 101.0 U/L (13-61)
[2024-09-02 08:16] LABS: ALK PHOS 143.0 U/L (45-117); SGOT/AST 58.0 U/L (15-37)
[2024-09-02 08:17] LABS: TOT PROT 5.6 g/dl (6.4-8.2)
[2024-09-02 08:55] LABS: CREATININE 0.8 mg/dL (0.55-1.3)
[2024-09-02] MEDS: MAGNESIUM 2GM/50ML STERILE WATER IVPB IVPB ONE (10:25)
[2024-09-04 08:18] LABS: MCHC 32.5 g/dl (32.3-36.5); MEAN CELL VOLUME 83.5 fl (79.0-92.2); MEAN PLT VOLUME 10.6 fl (9.4-12.4); RDW 13.2 % (12.2-16.4)
[2024-09-04 09:07] LABS: CREATININE 0.8 mg/dL (0.55-1.3); GLUCOSE,RANDOM 161.0 mg/dL (74-106)
[2024-09-04 09:09] LABS: TOT PROT 6.1 g/dl (6.4-8.2)
[2024-09-04 09:11] LABS: CO2 27.0 mmol/L (21-32); SGOT/AST 74.0 U/L (15-37); SGPT/ALT 124.0 U/L (13-61)
[2024-09-04 09:19] LABS: ALK PHOS 199.0 U/L (45-117)
[2024-09-04] MEDS: AMINO ACIDS/PROTEIN HYDROLYS 30 ML LIQUID.PKT PO SCH (10:04)
[2024-09-05 07:43] LABS: ABSOLUTE IMMATURE GRANULOCYTES 0.03 x10^3/uL (0.0-0.031); BASOPHILS # 0.02 x10^3/uL (0.01-0.08); EOSINOPHIL % 3.1 % (0.8-7.0); EOSINOPHILS # 0.32 x10^3/uL (0.04-0.54); MCHC 32.2 g/dl (32.3-36.5); MEAN CELL VOLUME 84.7 fl (79.0-92.2); MEAN PLT VOLUME 10.8 fl (9.4-12.4); MONOCYTE # 1.22 x10^3/uL (0.30-0.82); MONOCYTE % 11.9 % (5.3-12.2); RDW 13.4 % (12.2-16.4)
[2024-09-05 08:14] LABS: CO2 29.0 mmol/L (21-32); GLUCOSE,RANDOM 148.0 mg/dL (74-106)
[2024-09-05 08:17] LABS: CREATININE 0.7 mg/dL (0.55-1.3); SGOT/AST 83.0 U/L (15-37); SGPT/ALT 140.0 U/L (13-61)
[2024-09-05 08:19] LABS: TOT PROT 6.4 g/dl (6.4-8.2)
[2024-09-05 08:20] LABS: ALK PHOS 214.0 U/L (45-117)
[2024-09-05] MEDS: INSULIN (NOVOLOG) ASPART 100 UNITS/ML 10ML VIAL SQ SCH (16:30)
[2024-09-05] MEDS ORDERED: INSULIN (NOVOLOG) ASPART 100 UNITS/ML 10ML VIAL SQ SCH (16:30)
[2024-09-05] MEDS: ENOXAPARIN NA (PORCINE) 80 MG/0.8 ML DISP.SYRIN SQ SCH (21:25)
[2024-09-05] MEDS ORDERED: ENOXAPARIN NA (PORCINE) 120 MG/0.8 ML DISP.SYRIN SQ SCH (22:00)
[2024-09-06 07:57] LABS: ABSOLUTE IMMATURE GRANULOCYTES 0.03 x10^3/uL (0.0-0.031); BASOPHILS # 0.02 x10^3/uL (0.01-0.08); EOSINOPHIL % 3.6 % (0.8-7.0); EOSINOPHILS # 0.33 x10^3/uL (0.04-0.54); MCHC 32.6 g/dl (32.3-36.5); MEAN CELL VOLUME 84.1 fl (79.0-92.2); MEAN PLT VOLUME 10.6 fl (9.4-12.4); MONOCYTE # 1.05 x10^3/uL (0.30-0.82); MONOCYTE % 11.5 % (5.3-12.2); RDW 13.2 % (12.2-16.4)
[2024-09-06 08:21] LABS: CO2 28.0 mmol/L (21-32); GLUCOSE,RANDOM 140.0 mg/dL (74-106)
[2024-09-06 08:24] LABS: CREATININE 0.7 mg/dL (0.55-1.3); SGOT/AST 99.0 U/L (15-37)
[2024-09-06 08:26] LABS: ALK PHOS 238.0 U/L (45-117); SGPT/ALT 162.0 U/L (13-61); TOT PROT 6.4 g/dl (6.4-8.2)
[2024-09-06] MEDS ORDERED: APIXABAN 5 MG TABLET PO SCH (10:00)
[2024-09-06] MEDS ORDERED: ASPIRIN 81 MG CHEWABLE TABLETS GT SCH (10:00)
[2024-09-06] MEDS ORDERED: CLOPIDOGREL BISULFATE 75 MG TABLET (FP) GT SCH (10:00)
[2024-09-06] MEDS: ASPIRIN 81 MG CHEWABLE TABLETS NGT SCH (10:24)
[2024-09-06] MEDS: APIXABAN 5 MG TABLET NGT SCH (10:24)
[2024-09-06] MEDS: CLOPIDOGREL BISULFATE 75 MG TABLET (FP) NGT SCH (10:24)
[2024-09-06] MEDS: ENOXAPARIN NA (PORCINE) 80 MG/0.8 ML DISP.SYRIN SQ SCH (21:22)
[2024-09-07 07:05] LABS: MCHC 32.1 g/dl (32.3-36.5); MEAN CELL VOLUME 84.4 fl (79.0-92.2); MEAN PLT VOLUME 10.7 fl (9.4-12.4); RDW 13.3 % (12.2-16.4)
[2024-09-07 07:39] LABS: CO2 28.0 mmol/L (21-32); GLUCOSE,RANDOM 92.0 mg/dL (74-106)
[2024-09-07 07:42] LABS: CREATININE 0.6 mg/dL (0.55-1.3); SGOT/AST 81.0 U/L (15-37); SGPT/ALT 147.0 U/L (13-61)
[2024-09-07 07:44] LABS: TOT PROT 6.6 g/dl (6.4-8.2)
[2024-09-07 07:45] LABS: ALK PHOS 233.0 U/L (45-117)
[2024-09-07] MEDS ORDERED: METOCLOPRAMIDE HCL INJECTION 10 MG/2 ML VIAL IVPUSH PRN (19:32)
[2024-09-07] MEDS ORDERED: METHIMAZOLE 10 MG TABLET GT SCH (22:00)
[2024-09-07] MEDS ORDERED: METHIMAZOLE 10 MG TABLET PO SCH (22:10)
[2024-09-07] MEDS: ENOXAPARIN NA (PORCINE) 80 MG/0.8 ML DISP.SYRIN SQ SCH (23:00)
[2024-09-07] MEDS: METHIMAZOLE 10 MG TABLET PO SCH (23:59)
[2024-09-08] MEDS: INSULIN ASPART SLIDING SCALE (NOVOLOG) 1 VIAL SQ SCH ×2 (06:30→16:33)
[2024-09-08] MEDS: INSULIN (NOVOLOG) ASPART 100 UNITS/ML 10ML VIAL SQ SCH (06:53)
[2024-09-08] MEDS ORDERED: AMINO ACIDS/PROTEIN HYDROLYS 30 ML LIQUID.PKT GT SCH (08:00)
[2024-09-08 08:42] LABS: ABSOLUTE IMMATURE GRANULOCYTES 0.02 x10^3/uL (0.0-0.031); BASOPHILS # 0.02 x10^3/uL (0.01-0.08); EOSINOPHIL % 4.9 % (0.8-7.0); EOSINOPHILS # 0.34 x10^3/uL (0.04-0.54); MCHC 32.8 g/dl (32.3-36.5); MEAN CELL VOLUME 84.2 fl (79.0-92.2); MEAN PLT VOLUME 10.6 fl (9.4-12.4); MONOCYTE # 0.67 x10^3/uL (0.30-0.82); MONOCYTE % 9.7 % (5.3-12.2); RDW 13.2 % (12.2-16.4)
[2024-09-08 09:07] LABS: GLUCOSE,RANDOM 95.0 mg/dL (74-106)
[2024-09-08 09:10] LABS: CREATININE 0.7 mg/dL (0.55-1.3); SGOT/AST 48.0 U/L (15-37); SGPT/ALT 101.0 U/L (13-61)
[2024-09-08 09:12] LABS: TOT PROT 6.5 g/dl (6.4-8.2)
[2024-09-08 09:13] LABS: ALK PHOS 244.0 U/L (45-117)
[2024-09-08] MEDS ORDERED: amLODIPine BESYLATE 10 MG TABLET (FP) GT SCH (10:00)
[2024-09-08] MEDS: AMINO ACIDS/PROTEIN HYDROLYS 30 ML LIQUID.PKT PO SCH (10:59)
[2024-09-08] MEDS: amLODIPine BESYLATE 10 MG TABLET (FP) PO SCH (11:08)
[2024-09-08 15:54] LABS: CO2 24.0 mmol/L (21-32)
[2024-09-09] MEDS: amLODIPine BESYLATE 10 MG TABLET (FP) PO SCH (10:55)
[2024-09-10 08:47] LABS: ABSOLUTE IMMATURE GRANULOCYTES 0.02 x10^3/uL (0.0-0.031); BASOPHILS # 0.03 x10^3/uL (0.01-0.08); EOSINOPHIL % 3.6 % (0.8-7.0); EOSINOPHILS # 0.21 x10^3/uL (0.04-0.54); MCHC 32.6 g/dl (32.3-36.5); MEAN CELL VOLUME 84.8 fl (79.0-92.2); MEAN PLT VOLUME 10.9 fl (9.4-12.4); MONOCYTE # 0.52 x10^3/uL (0.30-0.82); MONOCYTE % 8.8 % (5.3-12.2); RDW 13.3 % (12.2-16.4)
[2024-09-10 10:04] LABS: CO2 26.0 mmol/L (21-32); GLUCOSE,RANDOM 109.0 mg/dL (74-106)
[2024-09-10 10:07] LABS: CREATININE 0.7 mg/dL (0.55-1.3); SGOT/AST 56.0 U/L (15-37); SGPT/ALT 97.0 U/L (13-61)
[2024-09-10 10:08] LABS: TOT PROT 6.9 g/dl (6.4-8.2)
[2024-09-10 10:10] LABS: ALK PHOS 249.0 U/L (45-117)
[2024-09-10] MEDS: SODIUM CHLORIDE 1,000 ML IV SCH (19:11)
[2024-09-11 08:28] LABS: MONOCYTE # 0.43 x10^3/uL (0.30-0.82)
[2024-09-11 08:30] LABS: ABSOLUTE IMMATURE GRANULOCYTES 0.05 x10^3/uL (0.0-0.031); BASOPHILS # 0.02 x10^3/uL (0.01-0.08); EOSINOPHIL % 4.0 % (0.8-7.0); EOSINOPHILS # 0.25 x10^3/uL (0.04-0.54); IMMATURE PLATELET FRACTION # 9.80 x10^3/uL; MCHC 32.3 g/dl (32.3-36.5); MEAN CELL VOLUME 84.5 fl (79.0-92.2); MONOCYTE % 6.9 % (5.3-12.2); RDW 13.6 % (12.2-16.4)
[2024-09-11 08:40] LABS: CO2 26.0 mmol/L (21-32); GLUCOSE,RANDOM 98.0 mg/dL (74-106)
[2024-09-11 08:43] LABS: CREATININE 0.7 mg/dL (0.55-1.3)
[2024-09-11 08:44] LABS: SGOT/AST 63.0 U/L (15-37); SGPT/ALT 107.0 U/L (13-61)
[2024-09-11 08:46] LABS: ALK PHOS 259.0 U/L (45-117); TOT PROT 7.4 g/dl (6.4-8.2)
[2024-09-11] MEDS ORDERED: APIXABAN 5 MG TABLET PO SCH (22:00)
[2024-09-12 09:29] LABS: ABSOLUTE IMMATURE GRANULOCYTES 0.02 x10^3/uL (0.0-0.031); BASOPHILS # 0.02 x10^3/uL (0.01-0.08); EOSINOPHIL % 3.7 % (0.8-7.0); EOSINOPHILS # 0.23 x10^3/uL (0.04-0.54); MCHC 32.7 g/dl (32.3-36.5); MEAN CELL VOLUME 83.9 fl (79.0-92.2); MEAN PLT VOLUME 10.3 fl (9.4-12.4); MONOCYTE # 0.48 x10^3/uL (0.30-0.82); MONOCYTE % 7.8 % (5.3-12.2); RDW 13.5 % (12.2-16.4)
[2024-09-12] MEDS: APIXABAN 5 MG TABLET PO SCH (09:47)
[2024-09-12 09:54] LABS: CO2 27.0 mmol/L (21-32); GLUCOSE,RANDOM 105.0 mg/dL (74-106)
[2024-09-12 09:57] LABS: SGPT/ALT 83.0 U/L (13-61)
[2024-09-12 09:58] LABS: CREATININE 0.6 mg/dL (0.55-1.3); SGOT/AST 41.0 U/L (15-37)
[2024-09-12 09:59] LABS: ALK PHOS 249.0 U/L (45-117); TOT PROT 7.0 g/dl (6.4-8.2)
[2024-09-12] MEDS: PNEUMOC 20-VAL CONJ-DIP CRM/PF 0.5 ML SYRINGE IM ONE (20:31)
[2024-09-13 08:38] LABS: ABSOLUTE IMMATURE GRANULOCYTES 0.02 x10^3/uL (0.0-0.031); BASOPHILS # 0.02 x10^3/uL (0.01-0.08); EOSINOPHIL % 3.9 % (0.8-7.0); EOSINOPHILS # 0.26 x10^3/uL (0.04-0.54); MCHC 32.5 g/dl (32.3-36.5); MEAN CELL VOLUME 84.7 fl (79.0-92.2); MEAN PLT VOLUME 10.6 fl (9.4-12.4); MONOCYTE # 0.50 x10^3/uL (0.30-0.82); MONOCYTE % 7.5 % (5.3-12.2); RDW 13.4 % (12.2-16.4)
[2024-09-13 09:45] LABS: CO2 23.0 mmol/L (21-32); GLUCOSE,RANDOM 112.0 mg/dL (74-106)
[2024-09-13 09:48] LABS: CREATININE 0.6 mg/dL (0.55-1.3); SGOT/AST 37.0 U/L (15-37); SGPT/ALT 75.0 U/L (13-61)
[2024-09-13 09:50] LABS: TOT PROT 6.8 g/dl (6.4-8.2)
[2024-09-13 09:51] LABS: ALK PHOS 235.0 U/L (45-117)
[2024-09-13] MEDS: MAGNESIUM 2GM/50ML STERILE WATER IVPB IVPB ONE (10:51)
[2024-09-13 14:35] VITALS: RESP 18
[2024-09-14 15:12] VITALS: BP 158/68; PULSE 77; TEMP 97.7
== END 2024-09-14 18:20 | DRG 207 ==
LOC: JER 21:01 → JERBED 22:05 → JICU 08-19 00:01 → J4W 08-30 23:13 → J8W 09-07 18:52
PROVIDERS: ADMIT Internal Medicine Pulmonary Disease; ATTEND Nurse Practitioner Acute Care
PROC: 5A1955Z Respiratory Ventilation, Greater than 96 Consecutive Hours (ICD-10-PCS; principal; 2024-08-18)
PROC: 0BH17EZ Insertion of Endotracheal Airway into Trachea, Via Natural or Artificial Opening (ICD-10-PCS; 2024-08-18)
PROC: 03HY32Z Insertion of Monitoring Device into Upper Artery, Percutaneous Approach (ICD-10-PCS; 2024-08-19)
PROC: 4A133B1 Monitoring of Arterial Pressure, Peripheral, Percutaneous Approach (ICD-10-PCS; 2024-08-19)
PROC: 4A133J1 Monitoring of Arterial Pulse, Peripheral, Percutaneous Approach (ICD-10-PCS; 2024-08-19)
PROC: 02HV33Z Insertion of Infusion Device into Superior Vena Cava, Percutaneous Approach (ICD-10-PCS; 2024-08-19)
PROC: B548ZZA Ultrasonography of Superior Vena Cava, Guidance (ICD-10-PCS; 2024-08-19)
PROC: XW033E5 Introduction of Remdesivir Anti-infective into Peripheral Vein, Percutaneous Approach, New Technology Group 5 (ICD-10-PCS; 2024-08-19)
DX: J96.02 Acute respiratory failure with hypercapnia (principal); U07.1 COVID-19; J69.0 Pneumonitis due to inhalation of food and vomit; I21.4 Non-ST elevation (NSTEMI) myocardial infarction; A41.9 Sepsis, unspecified organism; R65.21 Severe sepsis with septic shock; I63.521 Cerebral infarction due to unspecified occlusion or stenosis of right anterior cerebral artery; I48.92 Unspecified atrial flutter; E87.29 Other acidosis; N17.9 Acute kidney failure, unspecified; E87.0 Hyperosmolality and hypernatremia; G81.94 Hemiplegia, unspecified affecting left nondominant side; R47.01 Aphasia; I48.91 Unspecified atrial fibrillation; I10 Essential (primary) hypertension; E05.90 Thyrotoxicosis, unspecified without thyrotoxic crisis or storm; R74.01 Elevation of levels of liver transaminase levels; J96.01 Acute respiratory failure with hypoxia; E87.5 Hyperkalemia; D64.9 Anemia, unspecified; D69.6 Thrombocytopenia, unspecified; E83.42 Hypomagnesemia; R31.0 Gross hematuria
CPT/HCPCS: 0241U-QW; 36415; 36600; 70450-TC; 70496-TC; 70498-TC; 71045-TC-FY; 71275-TC; 74018-TC-FY; 76775-TC; 80048; 80053; 80061; 80076; 80307; 81003; 82248; 82550; 82553; 82803; 82962; 83010; 83036; 83516; 83520; 83605; 83615; 83735; 83880; 84100; 84439; 84443; 84445; 84481; 84484; 85025; 85027; 85032; 85384; 85610; 85651; 85730; 86038; 86140; 86225; 86256; 86850; 86900; 86901; 87040; 87070; 87086; 87205; 87389; 87635; 87899; 90677; 93005; 93010; 93306-TC; 94002; 94640; 97116-GP; 97162-GP; 99291; J0248; J1644; J3490; Q9967